=== PATIENT | female | born 1955 | race Caucasian/White ===

== ENCOUNTER 2016-10-19 18:29 | Emergency (ER) | payer OTHER ==
[~2016-10-19] VITALS: Ht 154.9 cm; Wt 86.0 kg
[~2016-10-19 18:29] MED LIST: ALPRAZOLAM TAB 1MG; ALPRAZOLAM1 MG PO; BACTROBAN CREAM15 GM TP; CRESTOR10 MG PO; CYCLOBENZAPR TAB 10M; DAPSONE; ESOMEPRAZOLE MA40 MG PO; FEXOFENADINE H180 MG PO; FLUOXETINE; K-DUR20 MEQ PO; LACTULOSE10 GM/151 PO; LASIX40 MG PO; METOLAZONE2.5 MG PO; OXYCONTIN; OXYCONTIN40 MG PO; OXYCONTIN60 MG PO; PLAVIX75 MG PO; PROVENTIL,2.5 MG/3 M IH; PROZAC40 MG PO; ROXICODONE; ROXICODONE15 MG PO; SPIRIVA1 INHALATI IH; TEMOVATE 0.05%30 GM TP; THEO-DUR,THEOC200 MG PO; THEOPHYLLINE; TIOTROPIUM; TIZANIDINE HCL4 M1 PO
[2016-10-20 01:19] VITALS: BP 144/76
== END 2016-10-20 01:25 | disposition home or self-care (01) ==
LOC: EME 18:29
DX: S52.592A Other fractures of lower end of left radius, initial encounter for closed fracture (principal); S52.616A Nondisplaced fracture of unspecified ulna styloid process, initial encounter for closed fracture; S20.212A Contusion of left front wall of thorax, initial encounter; S70.02XA Contusion of left hip, initial encounter; S09.8XXA Other specified injuries of head, initial encounter; W18.30XA Fall on same level, unspecified, initial encounter; R42 Dizziness and giddiness; Z79.02 Long term (current) use of antithrombotics/antiplatelets; Z99.81 Dependence on supplemental oxygen; J44.9 Chronic obstructive pulmonary disease, unspecified; M16.0 Bilateral primary osteoarthritis of hip; Z88.5 Allergy status to narcotic agent; Z87.891 Personal history of nicotine dependence
CPT/HCPCS: 70450; 71101; 72125; 73110; 73502; 99281; 99285; J3010; J7050; S0020

== ENCOUNTER 2016-11-01 14:19 | Day surgery (SDC) | payer OTHER ==
[~2016-11-01] VITALS: Ht 157.5 cm; Wt 89.4 kg
[~2016-11-01 14:19] MED LIST changes: +ALDACTONE25 MG PO; +ALLEGRA ALLERG180 MG PO; +AUBAGIO14 MG PO; +LASIX20 MG PO; +PROZAC20 MG PO; +ZANAFLEX2 M1 PO
[2016-11-01 14:45] LABS: HEMATOCRIT 33.8 % (36.0-46.0); MCH 28.9 PG (29.0-34.0); MCHC 32.8 G/DL (30.0-36.0); PLATELET COUNT 231 K/uL (156-360); RBC DIS.WIDTH-CV 12.9 % (11.8-14.6); RBC DIS.WIDTH-SD 41.8 % (39-53); RED BLOOD COUNT 3.84 M/uL (3.80-5.20); WHITE BLOOD COUNT 7.8 K/uL (4.1-10.2)
[2016-11-01 15:04] VITALS: BP 120/80
[2016-11-01 18:39] VITALS: BP 130/91
[2016-11-01 19:32] VITALS: BP 132/70
== END 2016-11-01 19:35 | disposition home or self-care (01) ==
LOC: SDC 14:19
PROVIDERS: Orthopaedic Surgery Hand Surgery
PROC: 0PSJ04Z Reposition Left Radius with Internal Fixation Device, Open Approach (ICD-10-PCS; principal; 2016-11-01)
DX: S52.502A Unspecified fracture of the lower end of left radius, initial encounter for closed fracture (principal); W18.30XA Fall on same level, unspecified, initial encounter; J44.9 Chronic obstructive pulmonary disease, unspecified; G35 Multiple sclerosis; Z79.02 Long term (current) use of antithrombotics/antiplatelets
CPT/HCPCS: 73100; 76000; 85027; C1713; J0690; J2250; J2795; S0020